=== PATIENT | male | born 1965 | race Caucasian/White ===

== ENCOUNTER 2024-12-30 18:41 | Inpatient (IN) | payer BC, MEDICAID ==
[~2024-12-30] VITALS: Ht 358.1 cm; Wt 68.0 kg
[~2024-12-30 18:41] MED LIST: PERM60CR4 TP; THIA100T72 PO
[2024-12-30 18:47] VITALS: O2SAT 97
[2024-12-30] MEDS: SODIUM CHLORIDE 0.9% 1,000 ML IV ONE (19:26)
[2024-12-30 19:56] LABS: BASOPHILS % 1.4 % (0.0-2.0); DIFFERENTIAL COMMENT 0; EOSINOPHILS % 11.9 % (0.0-5.0); HEMATOCRIT. 36.4 % (42.0-52.0); HEMOGLOBIN. 12.1 g/dL (14.0-18.0); LYMPHOCYTES % 47.5 % (20.0-50.0); MEAN CORPUSCULAR HEMOGLOBIN 36.1 pg (28.0-32.0); MEAN CORPUSCULAR HGB CONC 33.3 g/dL (31.0-37.0); MEAN CORPUSCULAR VOLUME 108.4 fL (80.0-94.0); MEAN PLATELET VOLUME 8.5 fl (7.4-10.4); MONOCYTES % 11.7 % (2.0-8.0); NEUTROPHILS % 27.5 % (40.0-76.0); PLATELET 281 x1000/uL (130-400); RED BLOOD CELL COUNT 3.36 mill/uL (4.7-6.1); RED CELL DISTRIBUTION WIDTH 14.4 % (11.6-14.6); WHITE BLOOD COUNT 6.6 x1000/uL (4.5-11.0)
[2024-12-30 20:08] LABS: CHLORIDE 108 mEq/L (98-107); POTASSIUM 3.3 mEq/L (3.5-5.1); SODIUM 142 mEq/L (136-145)
[2024-12-30 20:09] LABS: CARBON DIOXIDE 26 mEq/L (21-32)
[2024-12-30 20:10] LABS: CALCIUM 9.1 mg/dL (8.7-10.4)
[2024-12-30 20:14] LABS: CREATININE 0.9 mg/dL (0.6-1.3); GLUCOSE 103 mg/dL (70-105)
[2024-12-30 20:15] LABS: ETHANOL BLOOD 300 mg/dL (<10); TROPONIN I HIGH SENSITIVITY 15 ng/L (3.0-53); UREA NITROGEN BLOOD 11 mg/dL (9-23)
[2024-12-30 20:16] LABS: ALANINE AMINOTRANSFERASE 35 IU/L (10-49); ALBUMIN 3.5 g/dL (3.2-4.8); ASPARTATE AMINOTRANSFERASE 111 IU/L (<34)
[2024-12-30 20:17] LABS: BILIRUBIN DIRECT 0.1 mg/dL (<=3.0); BILIRUBIN TOTAL 0.4 mg/dL (0.1-1.0); PROTEIN TOTAL 6.9 g/dL (6.0-8.3)
[2024-12-31] MEDS ORDERED: MAGNESIUM/ALUMINUM HYDROXIDE/SIMETHICONE 30ML UDC PO PRN (01:00)
[2024-12-31] MEDS ORDERED: DOCUSATE SODIUM 100MG CAPSULE PO PRN (01:00)
[2024-12-31] MEDS ORDERED: IPRATROPIUM/ALBUTEROL 0.5-3(2.5)MG/3ML NEB HHN PRN (01:00)
[2024-12-31] MEDS ORDERED: GUAIFENESIN 200MG/10ML SUGAR FREE UDC PO PRN (01:00)
[2024-12-31] MEDS ORDERED: ONDANSETRON HCL 4MG/2ML INJ IV PRN (01:00)
[2024-12-31] MEDS ORDERED: ACETAMINOPHEN 325MG TABLET PO PRN ×2 (01:00)
[2024-12-31] MEDS ORDERED: HYDROXYZINE 10MG TABLET PO PRN (01:30)
[2024-12-31 02:15] VITALS: BP 133/82; PULSE 62; RESP 17; TEMP 36.2; O2SAT 100
[2024-12-31 02:30] VITALS: BP 133/82; PULSE 62; RESP 17; TEMP 36.3
[2024-12-31 04:00] VITALS: BP 139/81; PULSE 60; RESP 16; TEMP 36.3; O2SAT 99
[2024-12-31] MEDS: PERMETHRIN 5% CREAM 60GM TOP NR (06:42)
[2024-12-31] MEDS: FAMOTIDINE 20MG/2ML VIAL IV SCH (07:37)
[2024-12-31] MEDS: MVI, ADULT NO.1 10 ML, FOLIC ACID 1 MG, THIAMINE HCL 100 MG in SODIUM CHLORIDE 0.9% 1,0... IV NR (07:38)
[2024-12-31 08:00] VITALS: BP 162/95; PULSE 82; RESP 18; TEMP 36.7; O2SAT 100
[2024-12-31] MEDS ORDERED: LORAZEPAM 2MG/ML UD SYRINGE IV PRN ×2 (09:00)
[2024-12-31] MEDS: PANTOPRAZOLE SODIUM 40 MG/VIAL IV SCH (11:04)
[2024-12-31] MEDS: POTASSIUM CHLORIDE 20MEQ TABLET SR PO NR (11:04)
[2024-12-31] MEDS: ENOXAPARIN 40MG/0.4ML SYR SUBCUT SCH (11:05)
[2024-12-31 11:27] LABS: *AMPHETAMINES SCREEN URINE NEGATIVE (NEGATIVE); *BARBITURATES SCREEN URINE NEGATIVE (NEGATIVE); *BENZODIAZEPINES SCREEN URINE NEGATIVE (NEGATIVE); *COCAINE SCREEN URINE NEGATIVE (NEGATIVE)
[2024-12-31 11:28] LABS: CANNABINOID URINE SCREEN NEGATIVE (NEGATIVE); ECSTASY MDMA SCREEN URINE NEGATIVE (NEGATIVE); METHADONE URINE SCREEN NEGATIVE (NEGATIVE); OPIATES URINE SCREEN NEGATIVE (NEGATIVE); PHENCYCLIDINE URINE SCREEN NEGATIVE (NEGATIVE)
[2024-12-31 12:00] VITALS: BP 136/84; PULSE 82; RESP 18; TEMP 37; O2SAT 100
[2024-12-31 14:30] LABS: CHLORIDE 107 mEq/L (98-107); SODIUM 141 mEq/L (136-145)
[2024-12-31 14:31] LABS: CALCIUM 9.3 mg/dL (8.7-10.4); CARBON DIOXIDE 24 mEq/L (21-32)
[2024-12-31 14:36] LABS: CREATININE 0.6 mg/dL (0.6-1.3); GLUCOSE 114 mg/dL (70-105); TRIGLYCERIDE 56 mg/dL (0-150)
[2024-12-31 14:37] LABS: LDL CHOLESTEROL 64 mg/dL (5-100); UREA NITROGEN BLOOD 9 mg/dL (9-23)
[2024-12-31 14:38] LABS: CHOLESTEROL 190 mg/dL (<200); HDL CHOLESTEROL 113 mg/dL (>55)
[2024-12-31 14:39] LABS: FOLIC ACID (FOLATE) SERUM > 20.00 ng/mL (>5.38); VITAMIN B12 SERUM 700 pg/mL (211-911)
[2024-12-31 14:41] LABS: THYROID STIMULATING HORMONE 3.24 uIU/mL (0.55-4.78)
[2025-01-01] MEDS ORDERED: THIAMINE HCL 100MG TABLET PO SCH (09:00)
[2025-01-01] MEDS ORDERED: FOLIC ACID 1MG TABLET PO SCH (09:00)
== END 2024-12-31 13:15 | disposition left against medical advice (07) | DRG 207 ==
LOC: ER 18:41 → 5WST 23:43 → EDBEDREQTM 23:54 → EDBEDREQ 23:54
PROVIDERS: ADMIT Internal Medicine; ATTEND Internal Medicine
DX: I95.89 Other hypotension (principal); D72.19 Other eosinophilia; B86 Scabies; E78.5 Hyperlipidemia, unspecified; F10.229 Alcohol dependence with intoxication, unspecified; E87.6 Hypokalemia; R11.10 Vomiting, unspecified; I51.7 Cardiomegaly; L29.9 Pruritus, unspecified; Z59.00 Homelessness unspecified; Z53.29 Procedure and treatment not carried out because of patient's decision for other reasons; Y90.8 Blood alcohol level of 240 mg/100 ml or more
CPT/HCPCS: 36415; 71045; 80048; 80061; 80076; 80305; 80320; 82607; 82746; 83735; 84443; 84484; 85025; 93005; 99291; J1650; J2470; J3411; J3490; J7030; G0480